=== PATIENT | male | born 1975 | race Caucasian/White ===

== ENCOUNTER 2016-11-13 17:58 | Emergency (ER) | payer MEDICARE, OTHER ==
[2016-11-13 18:20] VITALS: BP 162/98
--- OUTSIDE RECORDS SUMMARY | 2016-11-13 18:33 | XMS REPORT | Continuity of Care Document ---
:1975 Author Organization [facility] ([facility]) Address [place] [address] Phone [phone] Care Team Providers Name Role [facility] Primary Care Provider [phone] Source Comments This disclosure is being made pursuant to the Care Everywhere program, applicable federal and state laws, and may not contain all informaitonavailable regarding this patient.[facility] ([facility]) Active Allergies and Adverse Reactions No Known Allergies Current Medications Prescription Sig. Disp. Refills Start Date End Date Status albuterol (PROVENTIL Use 2 Puffs by Suspended HFA) 90 mcg/Actuation inhalation every 6 inhaler hours as needed. Indications: pt states that he does not have inhaler t this time because he ran out. Active Problems Problem Noted Date Condyloma acuminatum 05/20/2012 Social History Tobacco Use Types Packs/Day Years Used Date Current Every Day Smoker Cigarettes 1.5 10 Smokeless Tobacco: Former User Quit: 08/30/2008 Tobacco Cessation:Ready to Quit: No; Counseling Given: Yes Comments: Alcohol Use Drinks/Week oz/Week Comments Yes 6 Cans of beer 3.0 Last Filed Vital Signs Vital Sign Reading Time Taken Blood Pressure 162/89 10/14/2012 3:55 PM COMMERCIAL ENERGY AUDITOR Pulse 102 10/14/2012 3:55 PM COMMERCIAL ENERGY AUDITOR Temperature 36.5 C (97.7 F) 10/14/2012 3:55 PM COMMERCIAL ENERGY AUDITOR Respiratory Rate 18 05/20/2012 11:10 AM CDT Height 1.854 m (6' 1") 10/14/2012 3:55 PM COMMERCIAL ENERGY AUDITOR Weight 82.5 kg (181 lb 14.1 oz) 10/14/2012 3:55 PM COMMERCIAL ENERGY AUDITOR Body Mass Index 24 10/14/2012 3:55 PM COMMERCIAL ENERGY AUDITOR Oxygen Saturation 98% 04/20/2012 3:15 PM CDT Plan of Care Health Maintenance Due Date Last Done Comments Hepatitis B Vaccine (1 of 3 - Primary Series) 1975 Tdap Vaccine 1987 Lipid Disorder Screening 1994 MMR Vaccine 1994 Td Vaccine 1994 Pneumococcal Vaccine (1 of 1 - PPSV23) 1995 Influenza Vaccine: Seasonal (#1) 03/30/2016 Results from Last 3 Months Not on file
--- NOTE | 2016-11-13 18:59 | ERNOTE ---
ENT HPI Date of Service: 11/13/16 Presenting Symptoms: dental pain Time Seen by Provider: 11/13/16 18:15 Source: patient, RN notes reviewed, other - hazardous materials tanker driver Exam Limitations: intoxication - Immun/Allergies/Home Medications Immunizations: IMMUNIZATION HX Immunizations Up to Date Yes History of Influenza Vaccine More Information Required Hx Pneumococcal Vaccination No Allergies/Adverse Reactions: Allergies Allergy/AdvReac Type Severity Reaction Status Date / Time No Known Allergies Allergy Verified 08/25/16 00:01 Home Medications: HOME MEDICATIONS Acamprosate Calcium 2 tab PO TID #180 tablet.dr 08/25/16 [Last Taken Unknown] Albuterol Sulfate [Proair Hfa] 2 puff IH Q4H PRN #1 inhaler 08/25/16 [Last Taken Unknown] Naltrexone HCl [ReVia] 50 mg PO HS #30 tab 08/25/16 [Last Taken Unknown] Risperidone [Risperdal] 1 mg PO HS #30 tablet 08/25/16 [Last Taken Unknown] Topiramate [Topamax] 50 mg PO BID #60 tab 08/25/16 [Last Taken Unknown] clonazePAM [Klonopin] 0.5 mg PO BID #60 tab 08/25/16 [Last Taken Unknown] - History of Present Illness Narrative: 41 y/o male brought to the ED by a friend for a toothache. He has called the department multiple times today about this. He has had slurred speech throughout the day. He reported earlier that he had a tooth extracted but was only given Tylenol for pain. ENT Location: Present: dental Prior Treament: Reports: recently seen, treated by physician Review of Systems - Review of Systems Constitutional: Present: no symptoms reported EYE: Present: no symptoms reported ENT: Present: no symptoms reported Respiratory: Present: no symptoms reported Cardiology: Present: no symptoms reported Gastrointestinal/Abdominal: Present: no symptoms reported Genitourinary: Present: no symptoms reported Musculoskeletal: Present: no symptoms reported Skin: Present: no symptoms reported Neurological: Present: no symptoms reported Endocrine: Present: no symptoms reported Hematologic/Lymphatic: Present: no symptoms reported Psych: Present: no symptoms reported - Patient's Past Medical History Patient History - Medical: Alcohol Abuse, Depression Patient History - Cardiac/Respiratory: Asthma Patient History - Cancer: No Hx of Cancer Patient History - Surgical Procedures: No surgical history Patient History - Other: None - Family History Mother Family History - Medical: , No pertinent hx Father Family History - Medical: History Unknown Family History - Cardiac/Respiratory: Coronary Heart Disease Unable to Obtain Family History - Medical: History Unknown - Social History Living Situations: home Abuse History: No History of abuse Psych History: Hx of Anxiety, Hx of Depression Does anyone smoke in the home?: Yes Smoking Status: Current every day smoker Alcohol Use: heavy Drug Use: none - Immunizations Immunizations Up to Date: Yes Hx Pneumococcal Vaccination: No History of Influenza Vaccine: More Information Required to Determine Physical Exam - Physical Exam General Appearance: Present: wd/wn, alert, no apparent distress Ears, Nose, Throat: Present: other - No facial or jaw swelling noted Respiratory: Present: no respiratory distress, no accessory muscle use Neurological Exam: Present: other - Unsteady gait, slurred speech Skin Exam: Present: normal color, warm/dry ED Progress - Vital Signs Patient's Vital Signs:: I have reviewed the patient's vital signs. Vital Signs: Vital Signs 11/13/16 18:02 Temperature 36.6 C Pulse Rate 84 Respiratory 20 Rate Blood Pressure 162/98 O2 Sat by Pulse 98 Oximetry - Progress/Reassessment Chief Complaint: Dental Problem Progress:: Unchanged Plan - Plan Plan: Patient is obviously intoxicated but does not appear to be in any distress. Informed that he would not be given pain medication due to his intoxication and that he should contact his dentist with any further problems. Departure Clinical Impression: Pain, dental Alcohol intoxication Qualifiers: Complication of substance-induced condition: uncomplicated Qualified Code(s): F10.120 - Alcohol abuse with intoxication, uncomplicated - Departure Disposition: Home self-care Condition: Stable Instructions: Dental Extraction, Care After, [id number]
== END 2016-11-13 18:35 | disposition home or self-care (01) ==
LOC: ER 17:58
DX: K08.89 Other specified disorders of teeth and supporting structures (principal); F10.120 Alcohol abuse with intoxication, uncomplicated; Z72.0 Tobacco use

== ENCOUNTER 2016-11-28 18:02 | Emergency (ER) | payer MEDICARE, OTHER ==
[2016-11-28 18:38] VITALS: BP 132/100
--- NOTE | 2016-11-28 18:51 | ERNOTE ---
Medical Problem HPI - Narrative Date of Service: 11/28/16 - General Chief Complaint: General Assessment Time Seen by Provider: 11/28/16 18:43 Source: patient, police Exam Limitations: clinical condition - Immun/Allergies/Home Medications Immunizations: IMMUNIZATION HX Immunizations Up to Date Yes History of Influenza Vaccine More Information Required Hx Pneumococcal Vaccination No Allergies/Adverse Reactions: Allergies No Known Allergies Allergy (Verified 08/25/16 00:01) Home Medications: HOME MEDICATIONS Acamprosate Calcium 2 tab PO TID #180 tablet.dr 08/25/16 [Last Taken Unknown] Albuterol Sulfate [Proair Hfa] 2 puff IH Q4H PRN #1 inhaler 08/25/16 [Last Taken Unknown] Naltrexone HCl [ReVia] 50 mg PO HS #30 tab 08/25/16 [Last Taken Unknown] Topiramate [Topamax] 50 mg PO BID #60 tab 08/25/16 [Last Taken Unknown] clonazePAM [Klonopin] 0.5 mg PO BID #60 tab 08/25/16 [Last Taken Unknown] risperiDONE [Risperdal] 1 mg PO HS #30 tablet 08/25/16 [Last Taken Unknown] - History of Present History Narrative: Brought to the [facility] ER by law enforcement officers. By the officer report, he called dispatch, saying he wanted to harm himself. He says he just said he was peeing and pooping blood. He then denied he wanted to harm himself. He is intoxicated with alcohol, apparently. There are now conflicting reports about whether he wants to harm himself. They also said he had something green in his back pocket. He put it into his mouth, they took most of it out, but they are concerned it might be rat poisoning. Review of Systems - Review of Systems Constitutional: Present: no symptoms reported - appears intoxicated, smells of alcoholic beverage. EYE: Present: no symptoms reported ENT: Present: no symptoms reported Respiratory: Present: no symptoms reported Cardiology: Present: no symptoms reported Gastrointestinal/Abdominal: Present: See HPI Genitourinary: Present: See HPI Musculoskeletal: Present: no symptoms reported Skin: Present: no symptoms reported Neurological: Present: no symptoms reported Endocrine: Present: no symptoms reported Hematologic/Lymphatic: Present: no symptoms reported Psych: Present: no symptoms reported All Other Systems: All systems neg except as marked - Patient's Past Medical History Patient History - Medical: Alcohol Abuse, Depression Patient History - Cardiac/Respiratory: Asthma Patient History - Cancer: No Hx of Cancer Patient History - Surgical Procedures: No surgical history Patient History - Other: None - Family History Mother Family History - Medical: , No pertinent hx Father Family History - Medical: History Unknown Family History - Cardiac/Respiratory: Coronary Heart Disease Unable to Obtain Family History - Medical: History Unknown - Social History Living Situations: home Abuse History: No History of abuse Psych History: Hx of Anxiety, Hx of Depression Does anyone smoke in the home?: Yes Smoking Status: Current every day smoker Patient requests Smoking Cessation Consult: No Initiate information on Smoking Cessation: No Alcohol Use: heavy Drug Use: none - Immunizations Immunizations Up to Date: Yes Hx Pneumococcal Vaccination: No History of Influenza Vaccine: More Information Required to Determine Physical Exam - Physical Exam General Appearance: Present: wd/wn, no apparent distress, other - unkempt Eye Exam: Normal inspection: bilateral, PERRL: bilateral, EOMI: bilateral Ears, Nose, Throat: Present: normal ENT inspection Neck: Present: normal inspection Respiratory: Present: no respiratory distress, lungs clear Cardiovascular/Chest: Present: regular rate, rhythm, no murmur Gastrointestinal/Abdominal: Present: normal bowel sounds, nontender, nondistended, soft, no organomegaly Back Exam: Present: normal inspection Extremity Exam: Present: normal inspection, no edema Neurological Exam: Present: alert, oriented, normal mood/affect Skin Exam: Present: normal color, warm/dry ED Progress - Results and Orders Patient's Lab Results:: I have reviewed the patient's lab results. - Vital Signs Patient's Vital Signs:: I have reviewed the patient's vital signs. Vital Signs: Vital Signs 11/28/16 18:23 Temperature 36.6 C Pulse Rate 105 H Respiratory 20 Rate Blood Pressure 132/100 O2 Sat by Pulse 98 Oximetry - EKG EKG: NSR EKG read: Interp. by me - early repolarization change, stable from previous tracing. - Progress/Reassessment Chief Complaint: General Assessment - Transfer of Care Physician Sign Out: Roland Rodriguez Receiving Physician: Dereje Medellin Pending Results: Labs Expected Disposition: Discharge Departure - Departure Clinical Impression: Alcohol intoxication, Suicidal ideation
--- OUTSIDE RECORDS SUMMARY | 2016-11-28 18:53 | XMS REPORT | Continuity of Care Document ---
:1975 Author Organization [facility] ([facility]) [place] [address] Phone [phone] Care Team Providers Name Role [facility] Primary Care Provider [phone] Source Comments This disclosure is being made pursuant to the Care Everywhere program, applicable federal and state laws, and may not contain all informaitonavailable regarding this patient.[facility] ([facility]) Active Allergies and Adverse Reactions No Known [...] Taken Blood Pressure 162/89 10/14/2012 3:55 PM DEPARTMENT STORE GENERAL MANAGER Pulse 102 10/14/2012 3:55 PM DEPARTMENT STORE GENERAL MANAGER Temperature 36.5 C (97.7 F) 10/14/2012 3:55 PM DEPARTMENT STORE GENERAL MANAGER Respiratory Rate 18 05/20/2012 11:10 AM CDT Height 1.854 m (6' 1") 10/14/2012 3:55 PM DEPARTMENT STORE GENERAL MANAGER Weight 82.5 kg (181 lb 14.1 oz) 10/14/2012 3:55 PM DEPARTMENT STORE GENERAL MANAGER Body Mass Index 24 10/14/2012 3:55 PM DEPARTMENT STORE GENERAL MANAGER Oxygen Saturation 98% 04/20/2012 3:15 PM CDT [...]
[2016-11-28 19:08] LABS: Urine Appearance Clear; Urine Bacteria None Seen; Urine Bilirubin Negative (NEGATIVE); Urine Blood 10 /ul (NEGATIVE); Urine Color Yellow; Urine Ketone Negative (NEGATIVE); Urine Nitrite Negative (NEGATIVE); Urine Protein Negative (NEGATIVE); Urine RBC None Seen /hpf (0-5); Urine Specific Gravity 1.005 SP.GR. (1.005-1.030); Urine Urobilinogen Normal (NORMAL); Urine WBC 0-5 /hpf (0-5); Urine pH 5.5 pH (5.0-7.0)
[2016-11-28 19:16] LABS: Cocaine Ur Negative (NEGATIVE); Urine Barbiturate Negative (NEGATIVE); Urine Benzodiazepines Negative (NEGATIVE); Urine Opiates Negative (NEGATIVE); Urine PCP Negative (NEGATIVE); Urine THC Negative (NEGATIVE)
[2016-11-28 19:24] LABS: Hematocrit 40.6 % (42.0-52.0); Hemoglobin 14.6 gm/dL (13.5-18.0); Mean Cell Volume 101.8 fl (78-100); Mean Corpuscular Hemoglobin 36.6 pg (27-31); Mean Platelet Volume 10.2 fl (6.0-9.5); Neutrophil # 4.3 K/mm3 (1.3-6.0); Neutrophil % 65.8 % (42-75.0); Platelet Count 231 K/mm3 (150-450); Red Blood Count 3.99 M/mm3 (4.7-6.0); Red Cell Distribution Width 11.9 % (11.5-14.0); White Blood Count 6.5 K/mm3 (4.0-10.5)
[2016-11-28 19:45] LABS: ALT 35 U/L (19-67); AST 34 U/L (0-48); Albumin * 4.2 gm/dl (3.4-5.0); Alkaline Phosphatase * 79 U/L (50-170); Anion Gap 16.5 mmol/L (6.8-13.8); BUN/Creatinine Ratio 14.5 (9.0-21.6); Bilirubin, Total 0.2 mg/dL (0.0-1.1); Blood Urea Nitrogen 12 mg/dL (6-23); Ca. Corrected For Albumin 8.1 mg/dL (8.4-10.2); Calcium * 8.6 mg/dL (7.9-10.9); Carbon Dioxide 24.5 mmol/L (24-32.6); Chloride 100 mmol/L (97-106); Glucose * 91 mg/dL (70-110); Salicylate 6.5 mg/dL (2.8-20.0); Sodium 137 mmol/L (132-142); TSH * 0.926 uIU/mL (0.358-3.74)
[2016-11-28 20:35] LABS: INR 0.96 INR (0.90-1.10)
== END 2016-11-28 21:39 ==
LOC: ER 18:02
DX: F10.129 Alcohol abuse with intoxication, unspecified (principal); R45.851 Suicidal ideations; Z72.0 Tobacco use
CPT/HCPCS: 36415; 80053; 80307; 81001; 84443; 85025; 85610; 93005; 99284; G0480; G0481

== ENCOUNTER 2017-04-16 15:20 | Emergency (ER) | payer MEDICARE, OTHER ==
[2017-04-16 15:28] VITALS: BP 140/94
--- NOTE | 2017-04-16 16:17 | ERNOTE ---
ENT HPI Date of Service: 04/16/17 Presenting Symptoms: dental pain Time Seen by Provider: 04/16/17 16:11 Source: patient Exam Limitations: intoxication, other - Immun/Allergies/Home Medications Immunizations: IMMUNIZATION HX Immunizations Up to Date Yes History of Influenza Vaccine More Information Required Hx Pneumococcal Vaccination No Allergies/Adverse Reactions: Allergies Allergy/AdvReac Type Severity Reaction Status Date / Time No Known Allergies Allergy Verified 04/16/17 15:28 Home Medications: HOME MEDICATIONS Acamprosate Calcium 2 tab PO TID #180 tablet.dr 08/25/16 [Last Taken Unknown] Albuterol Sulfate [Proair Hfa] 2 puff IH Q4H PRN #1 inhaler 08/25/16 [Last Taken Unknown] Naltrexone HCl [ReVia] 50 mg PO HS #30 tab 08/25/16 [Last Taken Unknown] Topiramate [Topamax] 50 mg PO BID #60 tab 08/25/16 [Last Taken Unknown] clonazePAM [Klonopin] 0.5 mg PO BID #60 tab 08/25/16 [Last Taken Unknown] risperiDONE [Risperdal] 1 mg PO HS #30 tablet 08/25/16 [Last Taken Unknown] Clindamycin HCl 300 mg PO TID #20 capsule 04/16/17 [Last Taken Unknown] Ipratropium/Albuterol Sulfate [Combivent Respimat Inhal [place]] 1 puff IH QID #1 inhaler 04/16/17 [Last Taken Unknown] - History of Present Illness Narrative: Very intoxicated. Says he has left upper molar dental pain but continually requesting asthma medicine. Incoherent history but denies current asthma symptoms. States he had a right upper molar pulled but can't see his dentist for weeks. Requesting pain medicine. Review of Systems - Review of Systems All Other Systems: All systems neg except as marked - Very unreliable historian and incoherent at times - Patient's Past Medical History Patient History - Medical: Alcohol Abuse, Depression Patient History - Cardiac/Respiratory: Asthma Patient History - Cancer: No Hx of Cancer Patient History - Surgical Procedures: No surgical history Patient History - Other: None - Family History Mother Family History - Medical: , No pertinent hx Father Family History - Medical: History Unknown Family History - Cardiac/Respiratory: Coronary Heart Disease Unable to Obtain Family History - Medical: History Unknown - Social History Living Situations: alone Abuse History: No History of abuse Psych History: Hx of Anxiety, Hx of Depression, Hx of Psychiatric Tx Does anyone smoke in the home?: Yes Alcohol Use: heavy Drug Use: none - Immunizations Immunizations Up to Date: Yes Hx Pneumococcal Vaccination: No History of Influenza Vaccine: More Information Required to Determine Physical Exam - Physical Exam General Appearance: Present: other - intoxicated with strong EtOH breathe. Unable to sit or stand and very unsteady on his feet Head Exam: Present: normal inspection Ears, Nose, Throat: Present: other - Poor dentition. Some slight redness on gum of upper left 2-3 molars. But no tenderness to touch Respiratory: Present: no respiratory distress, normal breath sounds. Absent: rales, wheezing Cardiovascular/Chest: Present: regular rate, rhythm ED Progress - Vital Signs Vital Signs: Vital Signs 04/16/17 15:26 Temperature 36.8 C Pulse Rate 112 H Respiratory 15 Rate Blood Pressure 140/94 O2 Sat by Pulse 94 Oximetry - Progress/Reassessment Chief Complaint: Dental Problem Plan - Plan Plan: Inhaler Ibuprofen alternating with tylenol Use clindamycin as directed Follow up with dentist Departure Clinical Impression: Dental infection, Alcohol intoxication - Departure Disposition: Home self-care Condition: Fair Instructions: Tooth Injuries, [id number] Additional Instructions: Use ibuprofen alternating every three hours with tylenol Take clindamycin as directed Follow up with PCP Use inhaler as directed Prescriptions: Clindamycin HCl 300 mg PO TID #20 capsule Ipratropium/Albuterol Sulfate [Combivent Respimat Inhal [place]] 1 puff IH QID #1 inhaler
== END 2017-04-16 16:25 | disposition home or self-care (01) ==
LOC: ER 15:20
DX: K04.7 Periapical abscess without sinus (principal); F10.129 Alcohol abuse with intoxication, unspecified

== ENCOUNTER 2017-04-24 16:17 | Emergency (ER) | payer MEDICARE, OTHER ==
[2017-04-24 16:27] VITALS: BP 135/99
--- NOTE | 2017-04-24 16:44 | ERNOTE ---
ENT HPI Date of Service: 04/24/17 Presenting Symptoms: dental pain Time Seen by Provider: 04/24/17 16:34 Source: patient Exam Limitations: intoxication - Immun/Allergies/Home Medications Immunizations: IMMUNIZATION HX Immunizations Up to Date Yes History of Influenza Vaccine More Information Required Hx Pneumococcal Vaccination No Allergies/Adverse Reactions: Allergies Allergy/AdvReac Type Severity Reaction Status Date / Time No Known Allergies Allergy Verified 04/24/17 16:21 Home Medications: HOME MEDICATIONS Acamprosate Calcium 2 tab PO TID #180 tablet.dr 08/25/16 [Last Taken Unknown] Albuterol Sulfate [Proair Hfa] 2 puff IH Q4H PRN #1 inhaler 08/25/16 [Last Taken Unknown] Naltrexone HCl [ReVia] 50 mg PO HS #30 tab 08/25/16 [Last Taken Unknown] Topiramate [Topamax] 50 mg PO BID #60 tab 08/25/16 [Last Taken Unknown] clonazePAM [Klonopin] 0.5 mg PO BID #60 tab 08/25/16 [Last Taken Unknown] risperiDONE [Risperdal] 1 mg PO HS #30 tablet 08/25/16 [Last Taken Unknown] Clindamycin HCl 300 mg PO TID #20 capsule 04/16/17 [Last Taken Unknown] Ipratropium/Albuterol Sulfate [Combivent Respimat Inhal [facility]] 1 puff IH QID #1 inhaler 04/16/17 [Last Taken Unknown] Ibuprofen [Motrin] 600 mg PO Q6H PRN #90 tab 04/24/17 [Last Taken Unknown] - History of Present Illness ENT Location: Present: dental - States he has a dry socket right upper posterior. Also several areas of discomfort left upper posterior. Prearrival Treatment: Present: over the counter meds - tylenol Modifying Factors - Improves: Reports: medication Modifying Factors - Worsens: Reports: other - eating Associated Symptoms - ENT: Reports: tooth pain Review of Systems - Narrative Narrative: Patient states he has dental pain bilateral upper posterior. States he cannot get into dental for several wks. States last time he was here he received some strong medication and would like some more. - Review of Systems Constitutional: Present: no symptoms reported EYE: Present: no symptoms reported ENT: Present: other - tooth pain as described above. States he believes he has dry socket of the right upper posterior molar. Respiratory: Present: no symptoms reported Cardiology: Present: no symptoms reported Gastrointestinal/Abdominal: Present: no symptoms reported Neurological: Present: no symptoms reported - Denies any alcohol intake. - Patient's Past Medical History Patient History - Medical: Alcohol Abuse, Depression Patient History - Cardiac/Respiratory: Asthma Patient History - Cancer: No Hx of Cancer Patient History - Surgical Procedures: No surgical history Patient History - Other: None - Family History Mother Family History - Medical: , No pertinent hx Father Family History - Medical: History Unknown Family History - Cardiac/Respiratory: Coronary Heart Disease Unable to Obtain Family History - Medical: History Unknown - Social History Living Situations: home Abuse History: No History of abuse Psych History: Hx of Anxiety, Hx of Depression, Hx of Psychiatric Tx Does anyone smoke in the home?: Yes Alcohol Use: heavy Drug Use: none - Immunizations Immunizations Up to Date: Yes Hx Pneumococcal Vaccination: No History of Influenza Vaccine: More Information Required to Determine Physical Exam - Physical Exam General Appearance: Present: wd/wn, alert, no apparent distress, other - appears intoxicated Head Exam: Present: normal inspection, no evidence of injury Eye Exam: Normal inspection: bilateral Ears, Nose, Throat: Present: other - Right upper second molar removed with socket and erythema present. Left upper 1st/2nd molar gum erythema. No drainage. Very poor dentition. No signs of oral abcess. Neck: Present: normal inspection, nontender Respiratory: Present: no respiratory distress, no accessory muscle use Skin Exam: Present: warm/dry ED Progress - Vital Signs Vital Signs: Vital Signs 04/24/17 16:27 Temperature 36.7 C Pulse Rate 113 H Respiratory 16 Rate Blood Pressure 135/99 O2 Sat by Pulse 94 Oximetry - Progress/Reassessment Chief Complaint: Dental Problem Departure Clinical Impression: Pain, dental - Departure Disposition: Home Follow Up Needed Instructions: Dental Dry Socket, Dental Dry Socket, [id number] Additional Instructions: Continue you tylenol and use the ibuprofen 600mg every 6 hrs with food as needed. Must follow up with dental or your family provider for pain medication. Very important to not take your medication with alcohol. Prescriptions: Ibuprofen [Motrin] 600 mg PO Q6H PRN #90 tab PRN Reason: Pain
[2017-04-24] MEDS ORDERED: IBUPROFEN 600 MG TABLET PO PRN (16:47)
[2017-04-24] MEDS ORDERED: KETOROLAC TROMETHAMINE 60 MG/2 ML VIAL IM ONE (16:49)
[2017-04-24] MEDS: KETOROLAC TROMETHAMINE 60 MG/2 ML VIAL IM ONE (16:53)
== END 2017-04-24 17:08 | disposition home or self-care (01) ==
LOC: ER 16:17
DX: K08.89 Other specified disorders of teeth and supporting structures (principal)

== ENCOUNTER 2017-05-28 17:45 | Emergency (ER) | payer MEDICARE, OTHER ==
[2017-05-28] MEDS ORDERED: ALBUTEROL SULFATE 2.5 MG/0.5 ML VIAL.NEB IH ONE ×2 (17:54)
[2017-05-28 17:58] VITALS: BP 137/90
--- NOTE | 2017-05-28 18:08 | ERNOTE ---
Date of Service: 05/28/17 Time Seen by Provider: 05/28/17 17:49 Stated Complaint: LOST INHALER Presenting Symptoms:: cough Source: patient, EMS notes reviewed Exam Limitations: no limitations Immunizations: IMMUNIZATION HX Immunizations Up to Date Yes History of Influenza Vaccine No Hx Pneumococcal Vaccination No Allergies/Adverse Reactions: Allergies No Known Allergies Allergy (Verified 04/24/17 16:21) Home Medications: HOME MEDICATIONS Acamprosate Calcium 2 tab PO TID #180 tablet.dr 08/25/16 [Last Taken Unknown] Albuterol Sulfate [Proair Hfa] 2 puff IH Q4H PRN #1 inhaler 08/25/16 [Last Taken Unknown] Naltrexone HCl [ReVia] 50 mg PO HS #30 tab 08/25/16 [Last Taken Unknown] Topiramate [Topamax] 50 mg PO BID #60 tab 08/25/16 [Last Taken Unknown] clonazePAM [Klonopin] 0.5 mg PO BID #60 tab 08/25/16 [Last Taken Unknown] risperiDONE [Risperdal] 1 mg PO HS #30 tablet 08/25/16 [Last Taken Unknown] Clindamycin HCl 300 mg PO TID #20 capsule 04/16/17 [Last Taken Unknown] Ipratropium/Albuterol Sulfate [Combivent Respimat Inhal [place]] 1 puff IH QID #1 inhaler 04/16/17 [Last Taken Unknown] Ibuprofen [Motrin] 600 mg PO Q6H PRN #90 tab 04/24/17 [Last Taken Unknown] Doxycycline Monohydrate 100 mg PO BID #20 tablet 05/28/17 [Last Taken Unknown] predniSONE [Prednisone] 3 tab PO DAILY #9 tab 05/28/17 [Last Taken Unknown] - History of Present Ilness Narrative: Pt. comes in with c/o cough and the inability to find his inhaler. Pt. denies any SOB, CP, NVD, or fever. Pt. is intoxicated per his normal status and is unable to give any history as to duration of illness. Pt. denies calling anyone to tell them of this but states that the ambulance just knew he wasnt feeling well ans needed to come in. Report from non cdl driver is that they got a call from pt. [employer] worker stating that pt. called and was telling them that he couldn't find his inhaler. Review of Systems - Review of Systems Constitutional: Present: no symptoms reported. Absent: recent illness, fever, chills, weakness, fatigue, malaise EYE: Present: no symptoms reported ENT: Present: no symptoms reported Respiratory: Present: cough Cardiology: Present: no symptoms reported. Absent: chest pain, palpitations, edema Gastrointestinal/Abdominal: Present: no symptoms reported. Absent: nausea, vomiting, diarrhea Genitourinary: Present: no symptoms reported Musculoskeletal: Present: no symptoms reported Skin: Present: no symptoms reported Neurological: Present: no symptoms reported. Absent: headache, dizziness/light- headedness, numbness, tingling All Other Systems: All systems neg except as marked - Patient's Past Medical History Patient History - Medical: Alcohol Abuse, Depression Patient History - Cardiac/Respiratory: Asthma Patient History - Cancer: No Hx of Cancer Patient History - Surgical Procedures: No surgical history Patient History - Other: None - Family History Mother Family History - Medical: , No pertinent hx Father Family History - Medical: History Unknown Family History - Cardiac/Respiratory: Coronary Heart Disease Unable to Obtain Family History - Medical: History Unknown - Social History Living Situations: home Abuse History: No History of abuse Psych History: Hx of Anxiety, Hx of Depression, Hx of Psychiatric Tx Does anyone smoke in the home?: Yes Alcohol Use: heavy Drug Use: none - Immunizations Immunizations Up to Date: Yes Hx Pneumococcal Vaccination: No History of Influenza Vaccine: No Physical Exam - Physical Exam General Appearance: Present: wd/wn, alert, no apparent distress Head Exam: Present: normal inspection, no evidence of injury Eye Exam: Normal inspection: bilateral, PERRL: bilateral, EOMI: bilateral Ears, Nose, Throat: Present: normal ENT inspection, normal pharynx Neck: Present: normal inspection, nontender. Absent: lymphadenopathy (R), lymphadenopathy (L) Respiratory: Present: no respiratory distress, no accessory muscle use, chest nontender, crackles - course uppers clears with cough but returns Cardiovascular/Chest: Present: no murmur, normal peripheral pulses, tachycardia Gastrointestinal/Abdominal: Present: normal bowel sounds, nontender Back Exam: Present: normal inspection Extremity Exam: Present: normal inspection, non-tender, normal range of motion, no edema Neurological Exam: Present: alert, oriented, no motor/sensory deficits, other - intoxicated but functional Skin Exam: Present: normal color, warm/dry. Absent: pallor, skin rash ED Progress - Date and Time Seen: Date and Time: 05/28/17 18:05 Pt. is refusing labs but was given albuterol treatment and is improved with this. - Vital Signs Patient's Vital Signs:: I have reviewed the patient's vital signs. Vital Signs: Vital Signs 05/28/17 17:47 Temperature 36.4 C L Pulse Rate 105 H Respiratory 20 Rate Blood Pressure 137/90 O2 Sat by Pulse 92 Oximetry - X-Ray X-Ray #1 X-Ray: chest Interpretation: Interp. by me X-ray Comments: no consolidation but with bronchial cuffing. Departure Clinical Impression: Bronchitis Alcohol intoxication Qualifiers: Complication of substance-induced condition: uncomplicated Qualified Code(s): F10.920 - Alcohol use, unspecified with intoxication, uncomplicated - Departure Disposition: Home self-care Condition: Good Instructions: Acute Bronchitis, [id number] Additional Instructions: Please take medications as prescribed and follow up with primary provider in 2- 3 days. Prescriptions: Doxycycline Monohydrate 100 mg PO BID #20 tablet predniSONE [Prednisone] 3 tab PO DAILY #9 tab
[2017-05-28] MEDS ORDERED: ALBUTEROL SULFATE 60 PUFF INHALER IH ONE (18:31)
[2017-05-28] MEDS ORDERED: predniSONE 20 MG TABLET PO ONE (18:31)
[2017-05-28] MEDS ORDERED: DOXYCYCLINE HYCLATE 100 MG TABLET PO ONE (18:31)
[2017-05-28] MEDS ORDERED: ALBUTEROL SULFATE 200 PUFF INHALER IH ONE (18:33)
[2017-05-28] MEDS ORDERED: predniSONE 20 MG TABLET ONE (18:33)
[2017-05-28] MEDS ORDERED: DOXYCYCLINE HYCLATE 100 MG TABLET ONE (18:33)
== END 2017-05-28 18:32 | disposition home or self-care (01) ==
LOC: ER 17:45
DX: J40 Bronchitis, not specified as acute or chronic (principal)

== ENCOUNTER 2017-05-30 16:39 | Emergency (ER) | payer MEDICARE, OTHER ==
--- NOTE | 2017-05-30 16:49 | ERNOTE ---
Medical Problem HPI - General Time Seen by Provider: 05/30/17 16:46 Source: patient Exam Limitations: no limitations - Immun/Allergies/Home Medications Immunizations: IMMUNIZATION HX Immunizations Up to Date Yes History of Influenza Vaccine No Hx Pneumococcal Vaccination No Allergies/Adverse Reactions: Allergies No Known Allergies Allergy (Verified 04/24/17 16:21) Home Medications: HOME MEDICATIONS Acamprosate Calcium 2 tab PO TID #180 tablet.dr 08/25/16 [Last Taken Unknown] Albuterol Sulfate [Proair Hfa] 2 puff IH Q4H PRN #1 inhaler 08/25/16 [Last Taken Unknown] Naltrexone HCl [ReVia] 50 mg PO HS #30 tab 08/25/16 [Last Taken Unknown] Topiramate [Topamax] 50 mg PO BID #60 tab 08/25/16 [Last Taken Unknown] clonazePAM [Klonopin] 0.5 mg PO BID #60 tab 08/25/16 [Last Taken Unknown] risperiDONE [Risperdal] 1 mg PO HS #30 tablet 08/25/16 [Last Taken Unknown] Clindamycin HCl 300 mg PO TID #20 capsule 04/16/17 [Last Taken Unknown] Ipratropium/Albuterol Sulfate [Combivent Respimat Inhal [place]] 1 puff IH QID #1 inhaler 04/16/17 [Last Taken Unknown] Ibuprofen [Motrin] 600 mg PO Q6H PRN #90 tab 04/24/17 [Last Taken Unknown] Doxycycline Monohydrate 100 mg PO BID #20 tablet 05/28/17 [Last Taken Unknown] predniSONE [Prednisone] 3 tab PO DAILY #9 tab 05/28/17 [Last Taken Unknown] - History of Present History Narrative: This is a 41-year-old known alcoholic patient with a history of asthma who walks into our emergency room claiming that he is unable to breathe properly. Patient denies any fevers or chills he appears to be in no distress he stated that at home he had difficulty breathing. Review of Systems - Review of Systems Constitutional: Present: no symptoms reported EYE: Present: no symptoms reported ENT: Present: no symptoms reported Respiratory: Present: See HPI Cardiology: Present: no symptoms reported Gastrointestinal/Abdominal: Present: no symptoms reported Genitourinary: Present: no symptoms reported Musculoskeletal: Present: no symptoms reported - Patient's Past Medical History Patient History - Medical: Alcohol Abuse, Depression Patient History - Cardiac/Respiratory: Asthma Patient History - Cancer: No Hx of Cancer Patient History - Surgical Procedures: No surgical history Patient History - Other: None - Family History Mother Family History - Medical: , No pertinent hx Father Family History - Medical: History Unknown Family History - Cardiac/Respiratory: Coronary Heart Disease Unable to Obtain Family History - Medical: History Unknown - Social History Living Situations: home Abuse History: No History of abuse Psych History: Hx of Anxiety, Hx of Depression, Hx of Psychiatric Tx Does anyone smoke in the home?: Yes Alcohol Use: heavy Drug Use: none - Immunizations Immunizations Up to Date: Yes Hx Pneumococcal Vaccination: No History of Influenza Vaccine: No Physical Exam - Physical Exam General Appearance: Present: wd/wn, alert, no apparent distress - there is no respiratory distress in this patient his oxygen saturation is 95% Head Exam: Present: normal inspection Neck: Present: normal inspection Respiratory: Present: no respiratory distress, chest nontender - patient does have very mild expiratory wheezes only on the right side I don't hear any wheezing on the left side, I don't hear any rales or rhonchi. He is not in any respiratory distress he is not using accessory muscles to breathe. Cardiovascular/Chest: Present: regular rate, rhythm, no murmur, normal peripheral pulses Gastrointestinal/Abdominal: Present: normal bowel sounds, nontender, nondistended, soft, no organomegaly Extremity Exam: Present: normal inspection, normal range of motion ED Progress - Vital Signs Patient's Vital Signs:: I have reviewed the patient's vital signs. - X-Ray X-Ray #1 X-Ray: chest Plan - Plan Plan: Chest x-ray does not reveal a consolidation it has more of a viral/bronchitic pattern patient felt better and sounded much better after his breathing treatment upon auscultation he was no longer wheezing after the breathing treatment. This examiner asked the patient if he had an inhaler and patient stated that he did not. At this time this examiner will give the patient an inhaler to use every 4-6 hours for shortness of breath for his asthma. Repeat pulse after the breathing treatment was done was 88 and regular. Patient's blood pressure is within normal limits. H&H stable and appropriate to be discharged home. Departure Clinical Impression: Asthma exacerbation - Departure Disposition: Home self-care Condition: Good Instructions: Metered Dose Inhaler (No Spacer Used) Additional Instructions: Please do not smoke or drink alcohol and follow up with your regular doctor Referrals: Roland Rodriguez MD [Primary Care Provider] -
[2017-05-30] MEDS ORDERED: ALBUTEROL SULFATE/IPRATROPIUM 3 ML NEBU IH ONE ×2 (16:50→16:54)
[2017-05-30] MEDS ORDERED: ALBUTEROL SULFATE 60 PUFF INHALER IH ONE (17:14)
[2017-05-30] MEDS ORDERED: ALBUTEROL SULFATE 200 PUFF INHALER IH ONE (17:15)
[2017-05-30 17:29] VITALS: BP 140/68
== END 2017-05-30 17:19 | disposition home or self-care (01) ==
LOC: ER 16:39
DX: J45.901 Unspecified asthma with (acute) exacerbation (principal)

== ENCOUNTER 2017-06-09 17:54 | Emergency (ER) | payer MEDICARE, OTHER ==
[2017-06-09 18:26] VITALS: BP 110/61
== END 2017-06-09 19:42 | disposition left against medical advice (07) ==
LOC: ER 17:54
DX: Z53.21 Procedure and treatment not carried out due to patient leaving prior to being seen by health care provider (principal)

== ENCOUNTER 2017-06-09 20:11 | Emergency (ER) | payer MEDICARE, OTHER ==
[2017-06-09 20:41] VITALS: BP 116/76
== END 2017-06-09 20:50 | disposition left against medical advice (07) ==
LOC: ER 20:11
DX: Z53.21 Procedure and treatment not carried out due to patient leaving prior to being seen by health care provider (principal)

== ENCOUNTER 2017-06-27 19:35 | Emergency (ER) | payer MEDICARE, OTHER ==
[2017-06-27] MEDS ORDERED: ALBUTEROL SULFATE/IPRATROPIUM 3 ML NEBU IH ONE ×2 (19:46→19:53)
[2017-06-27] MEDS ORDERED: METHYLPREDNISOLONE SOD SUCC/PF 125 MG/2 ML VIAL IV ONE (19:46)
--- NOTE | 2017-06-27 19:49 | ERNOTE ---
Medical Problem HPI - Narrative Date of Service: 06/27/17 - General Chief Complaint: General Assessment Time Seen by Provider: 06/27/17 19:44 Source: patient - Immun/Allergies/Home Medications Immunizations: IMMUNIZATION HX Immunizations Up to Date Yes History of Influenza Vaccine No Hx Pneumococcal Vaccination No Allergies/Adverse Reactions: Allergies No Known Allergies Allergy (Verified 06/27/17 19:44) Home Medications: HOME MEDICATIONS Acamprosate Calcium 2 tab PO TID #180 tablet. 08/25/16 [Last Taken Unknown] Albuterol Sulfate [Proair Hfa] 2 puff IH Q4H PRN #1 inhaler 08/25/16 [Last Taken Unknown] Naltrexone HCl [ReVia] 50 mg PO HS #30 tab 08/25/16 [Last Taken Unknown] Topiramate [Topamax] 50 mg PO BID #60 tab 08/25/16 [Last Taken Unknown] clonazePAM [Klonopin] 0.5 mg PO BID #60 tab 08/25/16 [Last Taken Unknown] risperiDONE [Risperdal] 1 mg PO HS #30 tablet 08/25/16 [Last Taken Unknown] Clindamycin HCl 300 mg PO TID #20 capsule 04/16/17 [Last Taken Unknown] Ipratropium/Albuterol Sulfate [Combivent Respimat Inhal [place]] 1 puff IH QID #1 inhaler 04/16/17 [Last Taken Unknown] Ibuprofen [Motrin] 600 mg PO Q6H PRN #90 tab 04/24/17 [Last Taken Unknown] Doxycycline Monohydrate 100 mg PO BID #20 tablet 05/28/17 [Last Taken Unknown] predniSONE [Prednisone] 3 tab PO DAILY #9 tab 05/28/17 [Last Taken Unknown] Prednisone 50 mg PO DAILY #5 tablet 06/27/17 [Last Taken Unknown] - History of Present History Narrative: This is a 41-year-old male well known to the emergency department and comes in from [facility] The patient call the annulus complaining of some shortness of breath and left arm pain. He refused to go to the hospital which will was only a mile or 2 away and demanded they bring him here which was 15-20 minutes. The patient says that earlier today he was "hanging drywall". He says during this time he developed some pain in his left shoulder and arm. He says that he also developed some shortness of breath while he was hanging drywall. The patient says this was some time between one and 5. The patient says he is having coughing no fever. He has a taste of acid in his throat. He admits to heavy drinking shortly after working on drywall. After he got intoxicated he decided maybe he should go to the hospital. He has a history of coming to the hospital extremely intoxicated multiple times in the past. Review of Systems - Review of Systems Constitutional: Present: no symptoms reported EYE: Present: no symptoms reported ENT: Present: no symptoms reported Respiratory: Present: shortness of breath Cardiology: Present: no symptoms reported Gastrointestinal/Abdominal: Present: no symptoms reported Genitourinary: Present: no symptoms reported Musculoskeletal: Present: muscle pain, joint pain, other - left shoulder and arm Skin: Present: no symptoms reported Neurological: Present: no symptoms reported Endocrine: Present: no symptoms reported Hematologic/Lymphatic: Present: no symptoms reported Psych: Present: no symptoms reported All Other Systems: All systems neg except as marked - Patient's Past Medical History Patient History - Medical: Alcohol Abuse, Depression Patient History - Cardiac/Respiratory: Asthma, Bronchitis Patient History - Cancer: No Hx of Cancer Patient History - Surgical Procedures: No surgical history Patient History - Other: None - Family History Mother Family History - Medical: , No pertinent hx Father Family History - Medical: History Unknown Family History - Cardiac/Respiratory: Coronary Heart Disease Unable to Obtain Family History - Medical: History Unknown - Social History Living Situations: home Abuse History: No History of abuse Psych History: Hx of Anxiety, Hx of Depression, Hx of Psychiatric Tx Smoking Status: Current every day smoker Alcohol Use: heavy - Immunizations Immunizations Up to Date: Yes Hx Pneumococcal Vaccination: No History of Influenza Vaccine: No Physical Exam - Physical Exam General Appearance: Present: wd/wn, alert, no apparent distress, other - obviously intoxicated slurring his speech Head Exam: Present: normal inspection, no evidence of injury Eye Exam: Normal inspection: bilateral, PERRL: bilateral, EOMI: bilateral Ears, Nose, Throat: Present: normal ENT inspection, normal pharynx Neck: Present: normal inspection, nontender Respiratory: Present: other - H and has scattered expiratory wheezes with poor air entry throughout Cardiovascular/Chest: Present: regular rate, rhythm, no murmur, normal peripheral pulses, other - borderline tachycardic right around 100 Gastrointestinal/Abdominal: Present: normal bowel sounds, nontender, nondistended, soft Back Exam: Present: normal inspection, normal range of motion Extremity Exam: Present: normal inspection, non-tender Neurological Exam: Present: alert, oriented, no motor/sensory deficits, other - obviously intoxicated Skin Exam: Present: normal color, warm/dry Lymphatic Exam: Present: no adenopathy ED Progress - Results and Orders Patient's Lab Results:: I have reviewed the patient's lab results. - Vital Signs Patient's Vital Signs:: I have reviewed the patient's vital signs. Vital Signs: Vital Signs 06/27/17 19:41 Temperature 36.7 C Pulse Rate 103 H Respiratory 18 Rate Blood Pressure 146/105 O2 Sat by Pulse 95 Oximetry - X-Ray X-Ray #1 X-Ray: chest Interpretation: Interp. by me X-ray Comments: Chest x-ray demonstrates mild hyperinflation. No acute parenchymal disease noted cardiovascular disease - Progress/Reassessment Chief Complaint: General Assessment Progress:: Improved Progress Note-Subjective: 06/27/17 20:53 The patient is breathing well enough now that he would like to have a sandwich and something to eat. He is talking on the phone without any difficulty. No further coughing here in the department. Breath is moving better. He is intoxicated. This does not preclude him from being discharged. The left arm pain and shortness of breath were initially concerning for possible acute coronary syndrome however troponin was done more than 3 hours after the start of symptoms, and there is no elevation. I will repeat another troponin in 1-2 hours and if this also was negative this will give me a full 4-6 hours. Departure Clinical Impression: Acute asthma, Alcohol intoxication, H/O ETOH abuse - Departure Disposition: Home self-care Condition: Good Instructions: Asthma, Adult, [id number] Additional Instructions: As we discussed I believe that the shortness of breath he were experiencing is due to an asthma attack. The breathing tubes in your lungs have gotten smaller. This is usually due to infection or inflammation. Most likely cause of inflammation would be the cigarette smoke and perhaps dust from the [place] were putting up. I do not see any broken bones or anything abnormal with your arm. He may have some mild irritation from bursitis which is an overuse injury. He may even have a pulled muscle or a sprain. All of these should get better on their own given time. Take all 5 days of the prescribed steroid. Take this even though he might feel like he don't need it. Use the prescribed inhaler as needed. Call your family doctor and set up a follow-up appointment. Absolutely no driving or operating machinery for 12 hours. Return to the ER for new worrisome symptoms Prescriptions: Prednisone 50 mg PO DAILY #5 tablet
[2017-06-27] MEDS ORDERED: METHYLPREDNISOLONE SOD SUCC/PF 125 MG/2 ML VIAL ONE (19:53)
[2017-06-27 20:03] LABS: Hematocrit 44.1 % (42.0-52.0); Hemoglobin 15.9 gm/dL (13.5-18.0); Mean Cell Volume 103.5 fl (78-100); Mean Corpuscular Hemoglobin 37.3 pg (27-31); Mean Corpuscular Hgb Conc 36.1 g/dl (32-36); Mean Platelet Volume 10.6 fl (6.0-9.5); Neutrophil # 7.7 K/mm3 (1.3-6.0); Neutrophil % 71.3 % (42-75.0); Platelet Count 230 K/mm3 (150-450); Red Blood Count 4.26 M/mm3 (4.7-6.0); Red Cell Distribution Width 12.7 % (11.5-14.0); White Blood Count 10.8 K/mm3 (4.0-10.5)
[2017-06-27 20:21] LABS: ALT 50 U/L (19-67); AST 39 U/L (0-48); Albumin * 4.4 gm/dl (3.4-5.0); Alkaline Phosphatase * 79 U/L (50-170); Anion Gap 14.5 mmol/L (6.8-13.8); BUN/Creatinine Ratio 13.4 (9.0-21.6); Bilirubin, Total 0.4 mg/dL (0.0-1.1); Blood Urea Nitrogen 13 mg/dL (6-23); Calcium * 9.6 mg/dL (7.9-10.9); Carbon Dioxide 26.3 mmol/L (24-32.6); Chloride 99 mmol/L (97-106); Glucose * 81 mg/dL (70-110); Potassium 3.8 mmol/L (3.4-4.6); Sodium 136 mmol/L (132-142); Total Protein 8.5 gm/dL (6.2-8.2)
[2017-06-27 20:25] LABS: Troponin I Less than 0.017 ng/ml (0.00-0.10)
[2017-06-27 20:50] VITALS: BP 146/74
== END 2017-06-27 22:51 | disposition home or self-care (01) ==
LOC: ER 19:35
DX: J45.998 Other asthma (principal); F10.129 Alcohol abuse with intoxication, unspecified; F10.10 Alcohol abuse, uncomplicated; F17.200 Nicotine dependence, unspecified, uncomplicated
CPT/HCPCS: 36415; 71010; 80053; 84484; 85025; 93005; 96374; 99285; G0481

== ENCOUNTER 2017-09-14 16:07 | Emergency (ER) | payer MEDICARE, MEDICAID ==
[2017-09-14 16:23] VITALS: BP 143/78
[2017-09-14] MEDS ORDERED: KETOROLAC TROMETHAMINE 60 MG/2 ML VIAL IM ONE ×2 (17:11→17:13)
--- NOTE | 2017-09-14 17:12 | ERNOTE ---
ENT HPI Date of Service: 09/14/17 Presenting Symptoms: dental pain Time Seen by Provider: 09/14/17 16:59 Source: patient, RN notes reviewed Exam Limitations: intoxication - Immun/Allergies/Home Medications Immunizations: IMMUNIZATION HX Immunizations Up to Date Yes History of Influenza Vaccine No Hx Pneumococcal Vaccination No Allergies/Adverse Reactions: Allergies Allergy/AdvReac Type Severity Reaction Status Date / Time No Known Allergies Allergy Verified 08/27/17 13:49 Home Medications: HOME MEDICATIONS Acamprosate Calcium 2 tab PO TID #180 tablet.dr 08/25/16 [Last Taken Unknown] Naltrexone HCl [ReVia] 50 mg PO HS #30 tab 08/25/16 [Last Taken Unknown] Topiramate [Topamax] 50 mg PO BID #60 tab 08/25/16 [Last Taken Unknown] clonazePAM [Klonopin] 0.5 mg PO BID #60 tab 08/25/16 [Last Taken Unknown] risperiDONE [Risperdal] 1 mg PO HS #30 tablet 08/25/16 [Last Taken Unknown] Clindamycin HCl 300 mg PO TID #20 capsule 04/16/17 [Last Taken Unknown] Ipratropium/Albuterol Sulfate [Combivent Respimat Inhal [place]] 1 puff IH QID #1 inhaler 04/16/17 [Last Taken Unknown] Ibuprofen [Motrin] 600 mg PO Q6H PRN #90 tab 04/24/17 [Last Taken Unknown] Doxycycline Monohydrate 100 mg PO BID #20 tablet 05/28/17 [Last Taken Unknown] predniSONE [Prednisone] 3 tab PO DAILY #9 tab 05/28/17 [Last Taken Unknown] Prednisone 50 mg PO DAILY #5 tablet 06/27/17 [Last Taken Unknown] Doxycycline Monohydrate [Monodox] 100 mg PO BID #28 capsule 08/27/17 [Last Taken Unknown] predniSONE [Prednisone] See Taper PO DAILY #20 tablet 08/27/17 [Last Taken Unknown] Albuterol Sulfate [Ventolin Hfa] 2 puff IH Q4H PRN #1 inhaler 09/14/17 [Last Taken Unknown] - History of Present Illness Narrative: 42 year old male presents to the ED for dental pain. [facility]. He reports that he also lost his inhaler and needs a new one. He appears very intoxicated which is not unusual for him. ENT Location: Present: dental Prearrival Treatment: Present: over the counter meds Prior Treament: Reports: recently seen, treated by physician, similar symptoms before Review of Systems - Review of Systems Constitutional: Absent: fever, chills EYE: Present: no symptoms reported ENT: Absent: nose congestion, sore throat Respiratory: Present: cough, wheezing. Absent: shortness of breath Cardiology: Absent: chest pain, palpitations Gastrointestinal/Abdominal: Absent: nausea, vomiting Genitourinary: Present: no symptoms reported Musculoskeletal: Absent: neck pain, joint pain Skin: Absent: rash, lesions, lumps Neurological: Present: no symptoms reported Endocrine: Present: no symptoms reported Hematologic/Lymphatic: Present: no symptoms reported Psych: Present: emotional problems - Patient's Past Medical History Patient History - Medical: Alcohol Abuse, Depression Patient History - Cardiac/Respiratory: Asthma, Bronchitis Patient History - Cancer: No Hx of Cancer Patient History - Surgical Procedures: No surgical history Patient History - Other: None - Family History Mother Family History - Medical: , No pertinent hx Father Family History - Medical: History Unknown Family History - Cardiac/Respiratory: Coronary Heart Disease Unable to Obtain Family History - Medical: History Unknown - Social History Living Situations: home Abuse History: No History of abuse Psych History: Hx of Anxiety, Hx of Depression, Hx of Psychiatric Tx Smoking Status: Current every day smoker Have you smoked in the past 12 months: Yes Do you dip or chew tobacco: No Patient requests Smoking Cessation Consult: No Initiate information on Smoking Cessation: No Alcohol Use: heavy Drug Use: none - Immunizations Immunizations Up to Date: Yes Hx Pneumococcal Vaccination: No History of Influenza Vaccine: No Physical Exam - Physical Exam General Appearance: Present: wd/wn, no apparent distress, other - Disheveled, Appears much older than actual age, Does not appear to be in pain, extremely intoxicated Head Exam: Present: normal inspection. Absent: swelling Ears, Nose, Throat: Present: other - Several teeth with decay present, generalized gingival inflammation, no sign of focal abscess Neck: Present: normal inspection, nontender, supple Respiratory: Present: no respiratory distress, normal breath sounds, no accessory muscle use, lungs clear Cardiovascular/Chest: Present: regular rate, rhythm, no murmur Extremity Exam: Present: normal inspection, normal range of motion Neurological Exam: Present: alert, normal mood/affect, no motor/sensory deficits , other - Very intoxicated. Absent: oriented Skin Exam: Present: normal color, warm/dry ED Progress - Vital Signs Patient's Vital Signs:: I have reviewed the patient's vital signs. Vital Signs: Vital Signs 09/14/17 16:19 Temperature 36.2 C L Pulse Rate 86 Respiratory 18 Rate Blood Pressure 143/78 O2 Sat by Pulse 99 Oximetry - Progress/Reassessment Chief Complaint: Dental Problem Progress:: Unchanged Plan - Plan Plan: Patient requests rx for pain medication for his dental problems, informed that he is too intoxicated. Departure Clinical Impression: Pain, dental Alcohol intoxication Qualifiers: Complication of substance-induced condition: with unspecified complication Qualified Code(s): F10.929 - Alcohol use, unspecified with intoxication, unspecified - Departure Disposition: Home Follow Up Needed Condition: Fair Instructions: Gingivitis, [id number], Alcohol Intoxication, [id number] Additional Instructions: Stop drinking alcohol See a dentist Referrals: Roland Rodriguez MD [Primary Care Provider] - Prescriptions: Albuterol Sulfate [Ventolin Hfa] 2 puff IH Q4H PRN #1 inhaler PRN Reason: Shortness Of Breath
== END 2017-09-14 17:17 | disposition home or self-care (01) ==
LOC: ER 16:07
DX: F10.929 Alcohol use, unspecified with intoxication, unspecified; K08.89 Other specified disorders of teeth and supporting structures; F17.200 Nicotine dependence, unspecified, uncomplicated